=== PATIENT | male | born 1990 | race Caucasian/White ===

== ENCOUNTER 2017-03-12 23:52 | Emergency (ER) | payer OTHER ==
[~2017-03-12] VITALS: Ht 170.2 cm; Wt 88.0 kg
[2017-03-12 23:58] VITALS: Ht 170.2 cm; Wt 88.0 kg
--- NOTE | 2017-03-13 00:12 | ERD ---
ER Documentation Chief Complaint Date/Time DATE: 03/13/17 TIME: 00:08 Chief Complaint left arm swelling today HPI 26-year-old male presents here in emergency department for complaints of left upper arm swelling today. Patient does not complain of any pain but is nonverbal , patient does not have any pain when touching the area, does not grimace. Patient is being taken care of by sister and mom, was picked up from school today started to have the swelling. Patient does not have any redness or deformity of affected area. Patient is able to move the joint of the left elbow and the left shoulder without any restriction per sister. ROS All systems reviewed and are negative except as per history of present illness. Medications Home Meds Reported Medications [none] Unknown Strength No Conflict Check 03/13/17 Allergies Allergies: Coded Allergies: erythromycin base (Unverified Allergy, Intermediate, 03/13/17) PMhx/Soc Medical and Surgical Hx: pt denies Medical Hx, pt denies Surgical Hx FmHx Family History: No coronary disease, No diabetes, No other Physical Exam Vitals Vital Signs Date Time Temp Pulse Resp B/P Pulse Ox O2 Delivery O2 Flow Rate FiO2 03/12/17 23:58 97.8 78 20 142/80 98 Physical Exam GENERAL: The patient is well developed and appropriate for usual state of health, in no apparent distress. CHEST: Clear to auscultation bilaterally. There are no rales, wheezes or rhonchi. HEART: Regular rate and rhythm. No murmurs, clicks, rubs or gallops. No S3 or S4. ABDOMEN: Soft, nontender and nondistended. Good bowel sounds. No rebound or guarding. No gross peritonitis. No gross organomegaly or masses. No Colby sign or McBurney point tenderness. BACK: No midline or flank tenderness. EXTREMITIES: Noted some swelling in the left upper arm, no erythema, nontender on palpation, able to do full range of motion of the left elbow and left shoulder without any restriction. Equal pulses bilaterally. Full range of motion of the other joints the body. Grossly neurovascularly intact. NEURO: Alert and oriented. Cranial nerves 2-12 intact. Motor strength in all 4 extremities with 5/5 strength. Sensation grossly intact. Normal speech and gait. SKIN: There is no apparent rash or petechia. The skin is warm and dry. HEMATOLOGIC AND LYMPHATIC: There is no evidence of excessive bruising or lymphedema. No gross cervical, axillary, or inguinal lymphadenopathy. Results [address] Park, attending physician, evaluated patient with me, and recommended x-ray of the left humerus for further evaluation PROCEDURE: Left humerus x-ray CLINICAL INDICATION: Generalized left arm pain TECHNIQUE: AP and lateral views of the humerus were obtained. COMPARISON: None FINDINGS: There is normal mineralization. No acute fracture or dislocation is seen. There is no significant soft tissue swelling. The visualized joints are normal. RPTAT:HJJR IMPRESSION: Normal x-ray of the left humerus. Physician Judy Date Time Electronically viewed and signed by Oliver Brock Physician on 03/13/2017 00:48 JR/ CC: AIXA MARTIN NP Procedures/MDM Medical Decision Making: Patient's swelling nonspecific at this time. There is no suspicion for neurovascular compromise. Patient has intact sensation and circulation of the affected extremity. There is low suspicion for septic arthritis. Patient does not have any fever. Radiology exams of the affected area does not show any fracture or dislocation. Disposition: Home. Patient advised to take ibuprofen for pain. Patient was advised to elevate the affected area and apply ice on affected area. Patient was advised that if symptoms are worse, numbness, tingling, high fever, unable to move joint, worsening symptoms, to return to emergency department immediately. Otherwise, patient is advised to follow up with the primary care doctor in 5-7 days for reevaluation of symptoms. Departure Diagnosis: Primary Impression: Left arm swelling Condition: Stable Patient Instructions: Contusion, Upper Extremity Additional Instructions: Patient advised to take ibuprofen for pain. Patient was advised to elevate the affected area and apply ice on affected area. Patient was advised that if symptoms are worse, numbness, tingling, high fever, unable to move joint, worsening symptoms, to return to emergency department immediately. Otherwise, patient is advised to follow up with the primary care doctor in 5-7 days for reevaluation of symptoms. AIXA MARTIN NP Mar 13, 2017 00:12
--- NOTE | 2017-03-13 00:48 | RADRPT ---
PROCEDURE: Left humerus x-ray CLINICAL INDICATION: Generalized left arm pain TECHNIQUE: AP and lateral views of the humerus were obtained. COMPARISON: None FINDINGS: There is normal mineralization. No acute fracture or dislocation is seen. There is no significant soft tissue swelling. The visualized joints are normal. RPTAT:HJJR IMPRESSION: Normal x-ray of the left humerus. Physician Judy Date Time Electronically viewed and signed by Oliver Brock Physician on 03/13/2017 00:48 /
== END 2017-03-13 01:06 | disposition home or self-care (01) ==
LOC: FTE 23:52
DX: R22.32 Localized swelling, mass and lump, left upper limb (principal)
CPT/HCPCS: 73060